=== PATIENT | male | born 1975 | race Caucasian/White ===

== ENCOUNTER 2019-02-18 13:27 | Inpatient (IN) ==
[2019-02-18 13:55] LABS: Bilirubin,Urine Negative (Negative); Blood,Urine Negative (Negative); Clarity,Urine Clear (Clear); Color,Urine Yellow (Yellow); Glucose,Urine (UA) Normal (Normal); Ketones,Urine Negative (Negative); Leukocyte Esterase,Urine Negative (Negative); Nitrite,Urine Negative (Negative); PH,Urine 6.5 pH Units (5.0-8.0); Protein,Urine Negative (Neg-Trace); Urobilinogen,Urine Normal (Normal)
[2019-02-18 14:09] LABS: Amphetamine Screen,Urine Negative ng/mL (Cutoff=1000); Barbiturate Screen,Urine Negative ng/mL (Cutoff=200); Benzodiazepines Screen,Urine Negative ng/mL (Cutoff=200); Cannabinoid Screen,Urine Negative ng/mL (Cutoff = 50); Cocaine Screen,Urine Negative ng/mL (Cutoff= 300); Opiate Screen,Urine Negative ng/mL (Cutoff=300); Phencyclidine Screen,Urine Negative ng/mL (Cutoff=25)
[2019-02-18 14:48] LABS: Basophils % 0.4 %; Eosinophils % 0.5 %; Hematocrit 41.1 % (37.5-50.1); Hemoglobin 14.1 g/dL (12.9-16.9); Immature Granulocytes % 0.1 % (0-4); Lymphocytes # 1.8 K/mcL (0.6-4.6); Lymphocytes % 22.8 %; Mean Corpuscular HGB Conc 34.3 g/dL (31.6-35.5); Mean Corpuscular Hemoglobin 33.4 pg (28.0-33.3); Mean Corpuscular Volume 97.4 fL (83.0-100.0); Mean Platelet Volume 9.2 fL (9.4-12.4); Monocytes # 0.5 K/mcL (0.0-1.3); Monocytes % 6.6 %; Neutrophils # 5.6 K/mcL (1.6-8.9); Platelet Count 255 K/mcL (140-400); Red Blood Count 4.22 M/mcL (4.19-5.50); Red Cell Distribution Width 12.1 % (11.5-14.5); Segmented Neutrophils % 69.6 %
[2019-02-18 15:01] LABS: Acetaminophen < 10 mcg/mL (10-20); BUN/Creatinine Ratio 14 (6-26); Blood Urea Nitrogen 11 mg/dL (6-20); Calcium 9.7 mg/dL (8.6-10.3); Carbon Dioxide 30 mEq/L (23-29); Chloride 105 mEq/L (98-107); Chol/HDL Ratio 2.8 (0-4.9); Cholesterol 142 mg/dL (< 200); Ethanol < 10 mg/dL (Less than 10); Glucose 117 mg/dL (70-105); HDL Cholesterol 50 mg/dL (40-59); LDL Cholesterol,Calculated 62 mg/dL (0-99); Osmolality,Calculated 292 (280-300); Potassium 3.7 mEq/L (3.5-5.1); Salicylate < 2.5 mg/dL (15.0-30.0); Sodium 141 mEq/L (136-145); Triglycerides 150 mg/dL (< 150); eGFR For African Americans > 60 (> 60); eGFR For Non-African Americans > 60 (> 60)
[2019-02-18 15:03] LABS: Albumin 4.5 g/dL (3.5-5.7); Albumin/Globulin Ratio 1.6 (1.1-2.2); Bilirubin,Indirect 0.3 mg/dL (0.0-1.0); Bilirubin,Total 0.3 mg/dL (0.3-1.0); Globulin 2.9 g/dL (2.4-3.5); Total Protein 7.4 g/dL (6.4-8.9)
[2019-02-18 15:16] LABS: Thyroid Stimulating Hormone 1.747 mcIU/mL (0.340-5.600)
[2019-02-18 15:58] LABS: Estimated Average Glucose 120 mg/dl
[2019-02-18] MEDS ORDERED: *HR* LORazepam 2 MG/ML VIAL IM PRN (17:37)
[2019-02-18] MEDS ORDERED: Haloperidol Lactate 5 MG/ML VIAL IM PRN (17:37)
[2019-02-18] MEDS ORDERED: Mag Hydrox/Al Hydrox/Simeth 30 ML UDC PO PRN (17:37)
[2019-02-18] MEDS ORDERED: Ibuprofen 400 MG TABLET PO PRN (17:37)
[2019-02-18] MEDS ORDERED: MOM Conc 10 ML UD.LIQ PO PRN (17:37)
[2019-02-18] MEDS: Ziprasidone 20 MG CAPSULE PO SCH (20:47)
[2019-02-18] MEDS: hydrOXYzine pamoate 25 MG CAPSULE PO PRN (20:48)
[2019-02-18] MEDS: traZODone 50 MG TABLET PO PRN (20:48)
[2019-02-18] MEDS: cloNIDine HCl 0.1 MG TABLET PO SCH (20:49)
[2019-02-18] MEDS: Nicotine 2 MG GUM BC PRN ×2 (20:51→23:11)
[2019-02-18] MEDS: Celecoxib 100 MG CAPSULE PO SCH (20:51)
[2019-02-18] MEDS: Famotidine 20 MG TABLET PO SCH (21:34)
[2019-02-19] MEDS: Nicotine 2 MG GUM BC PRN ×6 (04:34→22:06)
[2019-02-19] MEDS: Famotidine 20 MG TABLET PO SCH ×2 (08:44→16:42)
[2019-02-19] MEDS: Celecoxib 100 MG CAPSULE PO SCH ×2 (08:44→20:17)
[2019-02-19] MEDS: Loratadine 10 MG TABLET PO SCH (08:44)
[2019-02-19] MEDS: Aspirin Enteric Coated 81 MG Tablet PO SCH (08:44)
[2019-02-19] MEDS: Ascorbic Acid 500 MG TABLET PO SCH (08:45)
[2019-02-19] MEDS: Multivit/Ca/Min/Fe/FA 1 TAB TABLET PO SCH (08:45)
[2019-02-19] MEDS: Ziprasidone 20 MG CAPSULE PO SCH ×2 (08:45→20:17)
[2019-02-19] MEDS: amLODIPine 5 MG TABLET PO SCH (08:45)
[2019-02-19] MEDS: Lisinopril 20 MG TABLET PO SCH (08:46)
[2019-02-19] MEDS: *HR* LORazepam 1 MG TABLET PO PRN (19:04)
[2019-02-19] MEDS: cloNIDine HCl 0.1 MG TABLET PO SCH (20:17)
[2019-02-20] MEDS: Famotidine 20 MG TABLET PO SCH ×2 (07:22→17:36)
[2019-02-20] MEDS: Nicotine 2 MG GUM BC PRN ×3 (07:22→23:28)
[2019-02-20] MEDS: Aspirin Enteric Coated 81 MG Tablet PO SCH (08:42)
[2019-02-20] MEDS: Lisinopril 20 MG TABLET PO SCH (08:42)
[2019-02-20] MEDS: Celecoxib 100 MG CAPSULE PO SCH ×2 (08:42→20:47)
[2019-02-20] MEDS: Multivit/Ca/Min/Fe/FA 1 TAB TABLET PO SCH (08:42)
[2019-02-20] MEDS: amLODIPine 5 MG TABLET PO SCH (08:43)
[2019-02-20] MEDS: Ziprasidone 20 MG CAPSULE PO SCH ×2 (08:43→20:46)
[2019-02-20] MEDS: Loratadine 10 MG TABLET PO SCH (08:43)
[2019-02-20] MEDS: Ascorbic Acid 500 MG TABLET PO SCH (08:44)
[2019-02-20] MEDS: Divalproex (12 HR) 500 MG TABLET PO SCH ×2 (10:27→20:47)
[2019-02-20] MEDS: cloNIDine HCl 0.1 MG TABLET PO SCH (20:47)
[2019-02-20] MEDS: hydrOXYzine pamoate 25 MG CAPSULE PO PRN (20:47)
[2019-02-20] MEDS: traZODone 50 MG TABLET PO PRN (20:47)
[2019-02-21] MEDS: hydrOXYzine pamoate 25 MG CAPSULE PO PRN ×2 (05:07→21:15)
[2019-02-21] MEDS: Nicotine 2 MG GUM BC PRN ×4 (05:08→22:10)
[2019-02-21] MEDS: Famotidine 20 MG TABLET PO SCH ×2 (06:55→17:58)
[2019-02-21] MEDS: Aspirin Enteric Coated 81 MG Tablet PO SCH (09:17)
[2019-02-21] MEDS: Celecoxib 100 MG CAPSULE PO SCH ×2 (09:17→21:14)
[2019-02-21] MEDS: Loratadine 10 MG TABLET PO SCH (09:18)
[2019-02-21] MEDS: Ascorbic Acid 500 MG TABLET PO SCH (09:18)
[2019-02-21] MEDS: Divalproex (12 HR) 500 MG TABLET PO SCH ×2 (09:18→21:15)
[2019-02-21] MEDS: Ziprasidone 20 MG CAPSULE PO SCH ×2 (09:18→21:14)
[2019-02-21] MEDS: Lisinopril 20 MG TABLET PO SCH (09:18)
[2019-02-21] MEDS: amLODIPine 5 MG TABLET PO SCH (09:18)
[2019-02-21] MEDS: Multivit/Ca/Min/Fe/FA 1 TAB TABLET PO SCH (09:18)
[2019-02-21] MEDS: cloNIDine HCl 0.1 MG TABLET PO SCH (21:14)
[2019-02-21] MEDS: traZODone 50 MG TABLET PO PRN (21:15)
[2019-02-22] MEDS: Nicotine 2 MG GUM BC PRN ×3 (02:16→21:26)
[2019-02-22] MEDS: Famotidine 20 MG TABLET PO SCH ×2 (07:16→16:10)
[2019-02-22] MEDS: Ascorbic Acid 500 MG TABLET PO SCH (09:43)
[2019-02-22] MEDS: Lisinopril 20 MG TABLET PO SCH (09:44)
[2019-02-22] MEDS: Loratadine 10 MG TABLET PO SCH (09:44)
[2019-02-22] MEDS: Multivit/Ca/Min/Fe/FA 1 TAB TABLET PO SCH (09:45)
[2019-02-22] MEDS: Celecoxib 100 MG CAPSULE PO SCH ×2 (09:45→21:19)
[2019-02-22] MEDS: amLODIPine 5 MG TABLET PO SCH (09:45)
[2019-02-22] MEDS: Divalproex (12 HR) 500 MG TABLET PO SCH ×2 (09:45→21:19)
[2019-02-22] MEDS: Aspirin Enteric Coated 81 MG Tablet PO SCH (09:45)
[2019-02-22] MEDS: Ziprasidone 20 MG CAPSULE PO SCH (10:56)
[2019-02-22] MEDS: *HR* LORazepam 1 MG TABLET PO PRN (17:44)
[2019-02-22] MEDS ORDERED: OLANZapine 5 MG TAB.RAPDIS PO SCH (21:00)
[2019-02-22] MEDS: traZODone 50 MG TABLET PO PRN (21:19)
[2019-02-22] MEDS: cloNIDine HCl 0.1 MG TABLET PO SCH (21:19)
[2019-02-23] MEDS: Nicotine 2 MG GUM BC PRN ×3 (05:21→22:00)
[2019-02-23] MEDS: Aspirin Enteric Coated 81 MG Tablet PO SCH (08:37)
[2019-02-23] MEDS: Loratadine 10 MG TABLET PO SCH (08:37)
[2019-02-23] MEDS: Multivit/Ca/Min/Fe/FA 1 TAB TABLET PO SCH (08:37)
[2019-02-23] MEDS: Famotidine 20 MG TABLET PO SCH ×2 (08:37→16:52)
[2019-02-23] MEDS: Celecoxib 100 MG CAPSULE PO SCH ×2 (08:38→21:49)
[2019-02-23] MEDS: Divalproex (12 HR) 500 MG TABLET PO SCH ×2 (08:38→21:49)
[2019-02-23] MEDS: Ascorbic Acid 500 MG TABLET PO SCH (08:38)
[2019-02-23] MEDS: amLODIPine 5 MG TABLET PO SCH (09:16)
[2019-02-23] MEDS: Lisinopril 20 MG TABLET PO SCH (09:16)
[2019-02-23] MEDS: cloNIDine HCl 0.1 MG TABLET PO SCH (21:49)
[2019-02-23] MEDS: OLANZapine 10 MG TAB.RAPDIS PO SCH (21:49)
[2019-02-23] MEDS: traZODone 50 MG TABLET PO PRN (21:50)
[2019-02-23] MEDS: hydrOXYzine pamoate 25 MG CAPSULE PO PRN (21:50)
[2019-02-24] MEDS: Nicotine 2 MG GUM BC PRN ×4 (05:59→20:52)
[2019-02-24] MEDS: Aspirin Enteric Coated 81 MG Tablet PO SCH (08:55)
[2019-02-24] MEDS: Ascorbic Acid 500 MG TABLET PO SCH (08:55)
[2019-02-24] MEDS: Famotidine 20 MG TABLET PO SCH ×2 (08:56→17:03)
[2019-02-24] MEDS: Multivit/Ca/Min/Fe/FA 1 TAB TABLET PO SCH (08:56)
[2019-02-24] MEDS: Loratadine 10 MG TABLET PO SCH (08:56)
[2019-02-24] MEDS: amLODIPine 5 MG TABLET PO SCH (08:56)
[2019-02-24] MEDS: Celecoxib 100 MG CAPSULE PO SCH ×2 (08:56→20:53)
[2019-02-24] MEDS: Lisinopril 20 MG TABLET PO SCH (08:56)
[2019-02-24] MEDS: Divalproex (12 HR) 500 MG TABLET PO SCH ×2 (09:27→20:53)
[2019-02-24] MEDS: traZODone 50 MG TABLET PO PRN (20:52)
[2019-02-24] MEDS: OLANZapine 10 MG TAB.RAPDIS PO SCH (20:52)
[2019-02-24] MEDS: hydrOXYzine pamoate 25 MG CAPSULE PO PRN (20:53)
[2019-02-24] MEDS: cloNIDine HCl 0.1 MG TABLET PO SCH (20:53)
[2019-02-25] MEDS: Famotidine 20 MG TABLET PO SCH ×2 (07:34→18:21)
[2019-02-25] MEDS: Celecoxib 100 MG CAPSULE PO SCH ×2 (09:53→21:20)
[2019-02-25] MEDS: Ascorbic Acid 500 MG TABLET PO SCH (09:53)
[2019-02-25] MEDS: Nicotine 2 MG GUM BC PRN ×2 (09:54→13:25)
[2019-02-25] MEDS: Aspirin Enteric Coated 81 MG Tablet PO SCH (09:54)
[2019-02-25] MEDS: Multivit/Ca/Min/Fe/FA 1 TAB TABLET PO SCH (09:54)
[2019-02-25] MEDS: amLODIPine 5 MG TABLET PO SCH (09:54)
[2019-02-25] MEDS: Loratadine 10 MG TABLET PO SCH (09:54)
[2019-02-25] MEDS: Lisinopril 20 MG TABLET PO SCH (09:54)
[2019-02-25] MEDS: Divalproex (12 HR) 500 MG TABLET PO SCH ×2 (09:54→21:19)
[2019-02-25] MEDS: traZODone 50 MG TABLET PO PRN (21:19)
[2019-02-25] MEDS: OLANZapine 10 MG TAB.RAPDIS PO SCH (21:19)
[2019-02-25] MEDS: cloNIDine HCl 0.1 MG TABLET PO SCH (21:19)
[2019-02-25] MEDS: hydrOXYzine pamoate 25 MG CAPSULE PO PRN (21:20)
[2019-02-26] MEDS: Famotidine 20 MG TABLET PO SCH ×2 (06:57→17:32)
[2019-02-26] MEDS: Nicotine 2 MG GUM BC PRN ×3 (07:13→20:25)
[2019-02-26] MEDS: Aspirin Enteric Coated 81 MG Tablet PO SCH (09:11)
[2019-02-26] MEDS: Lisinopril 20 MG TABLET PO SCH (09:11)
[2019-02-26] MEDS: Multivit/Ca/Min/Fe/FA 1 TAB TABLET PO SCH (09:11)
[2019-02-26] MEDS: amLODIPine 5 MG TABLET PO SCH (09:11)
[2019-02-26] MEDS: Loratadine 10 MG TABLET PO SCH (09:11)
[2019-02-26] MEDS: Divalproex (12 HR) 500 MG TABLET PO SCH ×2 (09:11→20:22)
[2019-02-26] MEDS: Celecoxib 100 MG CAPSULE PO SCH ×2 (09:11→20:23)
[2019-02-26] MEDS: Ascorbic Acid 500 MG TABLET PO SCH (09:12)
[2019-02-26] MEDS: traZODone 50 MG TABLET PO PRN (20:23)
[2019-02-26] MEDS: hydrOXYzine pamoate 25 MG CAPSULE PO PRN (20:23)
[2019-02-26] MEDS: OLANZapine 10 MG TAB.RAPDIS PO SCH (20:24)
[2019-02-26] MEDS: cloNIDine HCl 0.1 MG TABLET PO SCH (20:25)
[2019-02-27] MEDS: Celecoxib 100 MG CAPSULE PO SCH ×2 (08:41→20:28)
[2019-02-27] MEDS: amLODIPine 5 MG TABLET PO SCH (08:41)
[2019-02-27] MEDS: Ascorbic Acid 500 MG TABLET PO SCH (08:42)
[2019-02-27] MEDS: Loratadine 10 MG TABLET PO SCH (08:42)
[2019-02-27] MEDS: Famotidine 20 MG TABLET PO SCH ×2 (08:42→17:43)
[2019-02-27] MEDS: Lisinopril 20 MG TABLET PO SCH (08:42)
[2019-02-27] MEDS: Divalproex (12 HR) 500 MG TABLET PO SCH ×2 (08:42→20:27)
[2019-02-27] MEDS: Multivit/Ca/Min/Fe/FA 1 TAB TABLET PO SCH (08:42)
[2019-02-27] MEDS: Aspirin Enteric Coated 81 MG Tablet PO SCH (08:42)
[2019-02-27] MEDS: Nicotine 2 MG GUM BC PRN ×2 (12:41→17:43)
[2019-02-27] MEDS: hydrOXYzine pamoate 25 MG CAPSULE PO PRN (20:28)
[2019-02-27] MEDS: cloNIDine HCl 0.1 MG TABLET PO SCH (20:29)
[2019-02-27] MEDS: traZODone 50 MG TABLET PO PRN (20:30)
[2019-02-27] MEDS: OLANZapine 10 MG TAB.RAPDIS PO SCH (20:30)
[2019-02-28] MEDS: Nicotine 2 MG GUM BC PRN ×2 (01:41→09:50)
[2019-02-28] MEDS: Famotidine 20 MG TABLET PO SCH (08:33)
[2019-02-28] MEDS: amLODIPine 5 MG TABLET PO SCH (08:33)
[2019-02-28] MEDS: Aspirin Enteric Coated 81 MG Tablet PO SCH (08:33)
[2019-02-28] MEDS: Divalproex (12 HR) 500 MG TABLET PO SCH (08:34)
[2019-02-28] MEDS: Celecoxib 100 MG CAPSULE PO SCH (08:34)
[2019-02-28] MEDS: Loratadine 10 MG TABLET PO SCH (08:34)
[2019-02-28] MEDS: Lisinopril 20 MG TABLET PO SCH (08:34)
[2019-02-28] MEDS: Multivit/Ca/Min/Fe/FA 1 TAB TABLET PO SCH (08:35)
[2019-02-28] MEDS: Ascorbic Acid 500 MG TABLET PO SCH (08:35)
[2019-02-28 08:46] LABS: Albumin 4.4 g/dL (3.5-5.7); Albumin/Globulin Ratio 1.8 (1.1-2.2); Bilirubin,Direct 0.1 mg/dL (0.0-0.2); Bilirubin,Indirect 0.3 mg/dL (0.0-1.0); Bilirubin,Total 0.4 mg/dL (0.3-1.0); Globulin 2.5 g/dL (2.4-3.5); Total Protein 6.9 g/dL (6.4-8.9)
[2019-02-28 09:38] VITALS: BP 123/76
== END 2019-02-28 13:45 | disposition home or self-care (01) | DRG 885 ==
LOC: EMEROOARM 13:27 → 1ANU 13:27 → SUATTDRO 02-19 14:43 → 1ANU 02-27 19:43
PROVIDERS: ADMIT Psychiatry & Neurology Psychiatry; ATTEND Psychiatry & Neurology Psychiatry